=== PATIENT | female | born 1980 | race Caucasian/White ===

== ENCOUNTER 2018-04-24 17:08 | Emergency (ER) | payer MEDICAID, OTHER ==
[2018-04-24] MEDS ORDERED: Sodium Chloride 0.9% 1,000 ML IV ONE (18:28)
[2018-04-24] MEDS ORDERED: Sodium Chloride 0.9% 1,000 ML ONE (19:03)
[2018-04-24 19:05] LABS: BASO % 0.4 % (0.0-2.0); EOS # 0.2 K/uL (0.0-0.7); EOS % 2.2 % (0.0-4.0); HEMOGLOBIN 13.6 g/dL (11.0-16.0); LYMPH % 33.7 % (20.0-40.0); MEAN CELL VOLUME 84.8 fL (81.0-99.0); MEAN CORPUSCULAR HEMOGLOBIN 29.6 pg (27.0-31.0); MEAN CORPUSCULAR HGB CONC 34.9 g/dL (33.0-37.0); MEAN PLATELET VOLUME 10.4 fL (7.2-11.7); MONO # 0.8 K/uL (0.0-0.8); MONO % 8.4 % (0.0-10.0); NEUT % 55.3 % (50.0-75.0); NRBC % 0.1 % (0.0-2.0); RBC 4.6 Mil/uL (3.80-5.20); RED CELL DISTRIBUTION WIDTH 13.9 % (11.5-14.5)
[2018-04-24 19:08] LABS: SQUAMOUS EPITHIAL 2 /hpf (0-5); URINE BILIRUBIN NEGATIVE (NEGATIVE); URINE BLOOD NEGATIVE (NEGATIVE); URINE CLARITY Clear (Clear); URINE COLOR Yellow (YELLOW); URINE GLUCOSE (UA) NORMAL (Normal); URINE LEUKOCYTE ESTERASE NEG Leu/uL (Negative); URINE PROTEIN NEGATIVE (NEGATIVE); URINE UROBILINOGEN NORMAL mg/dL (0.2-1.0)
[2018-04-24 19:09] LABS: HCG,QUALITATIVE URINE NEGATIVE (NEGATIVE)
[2018-04-24 19:17] LABS: ALBUMIN 3.9 g/dL (3.5-5.0); ALT/SGPT 45 U/L (9-52); AST/SGOT 31 U/L (14-36); BLOOD UREA NITROGEN 14 mg/dL (7-17); CALCIUM 9.2 mg/dl (8.6-10.4); GFR NON-AFRICAN AMERICAN > 60; LIPASE 209 U/L (23-300)
--- NOTE | 2018-04-24 19:46 | C.PDOC ---
History Of Present Illness 37 y/o female presents to the ER complaining of colicky lower abdominal pain which has been present for the past few days. Patient states that she is sexually active, she is not sure if she is . Denies having fever, chills, nausea, vomiting vaginal discharge, and vaginal bleeding. Time Seen by Provider: 04/24/18 18:22 Chief Complaint (Nursing): Abdominal Pain History Per: Patient History/Exam Limitations: no limitations Onset/Duration Of Symptoms: Days Current Symptoms Are (Timing): Still Present Severity: Moderate Past Medical History Reviewed: Historical Data, Nursing Documentation, Vital Signs Vital Signs: Last Vital Signs Temp 98.5 F 04/24/18 17:15 Pulse 85 04/24/18 17:15 Resp 20 04/24/18 17:15 BP 119/74 04/24/18 17:15 Pulse Ox 97 04/24/18 17:15 - Medical History PMH: Migraine Other Surgeries: Hx of surgeries Family History: States: No Known Family Hx - Social History Hx Alcohol Use: No Hx Substance Use: No - Immunization History Hx Tetanus Toxoid Vaccination: No Hx Influenza Vaccination: No Hx Pneumococcal Vaccination: No Review Of Systems Except As Marked, All Systems Reviewed And Found Negative. Constitutional: Negative for: Fever, Chills Gastrointestinal: Positive for: Abdominal Pain. Negative for: Nausea, Vomiting Genitourinary: Negative for: Dysuria, Hematuria, Vaginal Discharge, Vaginal Bleeding Physical Exam - Physical Exam Appears: Non-toxic, No Acute Distress, Other (obese female) Skin: Normal Color, Warm, Dry Head: Atraumatic, Normacephalic Eye(s): bilateral: Normal Inspection Nose: Normal Oral Mucosa: Moist Neck: Supple Chest: Symmetrical Cardiovascular: Rhythm Regular Respiratory: Normal Breath Sounds, No Rales, No Rhonchi, No Wheezing Gastrointestinal/Abdominal: Soft, Tenderness (mild suprapubic tenderness), No Guarding, No Rebound, Other (negative Henderson's, negative McBurney's) Neurological/Psych: Oriented x3, Normal Speech ED Course And Treatment - Laboratory Results Result Diagrams: 04/24/18 19:02 04/24/18 19:02 Lab Interpretation: Normal (ua neg,) Urine POC: Negative O2 Sat by Pulse Oximetry: 97 (RA) Pulse Ox Interpretation: Normal Medical Decision Making Medical Decision Making: no no uti chronic constip Disposition Doctor Will See Patient In The: Office Counseled Patient/Family Regarding: Studies Performed, Diagnosis - Disposition Referrals: Mc Wei MD [Medical Doctor] - Disposition: HOME/ ROUTINE Disposition Time: 19:45 Condition: GOOD Additional Instructions: michelle un purgante ahora Re-evalua cardenas molestia del abdomen despues de usar el sandip 2-3 veces Cambios de dieta y ejercisio Sigue con cardenas medico examanes del laboratorio, orina, prueba de embarasso NEGATIVOS Instructions: Constipation, Adult (DC) Forms: [employer] (Irish) Print Language: SLOVAK - Clinical Impression Clinical Impression: Colicky abdominal pain - Scribe Statement The provider has reviewed the documentation as recorded by the Scribe Gregorio Beck Provider Attestation: All medical record entries made by the Scribe were at my direction and perso jocy dictated by me. I have reviewed the chart and agree that the record accurately reflects my personal performance of the history, physical exam, medical decision making, and the department course for this patient. I have also personally directed, reviewed, and agree with the discharge instructions and disposition.
[2018-04-24 20:22] VITALS: BP 106/72; PULSE 68; RESP 18; TEMP 98.6
[2018-04-24 20:44] VITALS: O2SAT 97
--- NOTE | 2018-04-25 07:37 | RAD ---
Abdomen four views HISTORY: Abdominal pain. COMPARISON: None available. FINDINGS: Lung galan are clear. Heart size within normal limits. Fecal retention in the colon. Few mildly distended loops of small bowel in the upper mid abdomen. Calcified phleboliths in the pelvis. Impression: Fecal retention in the colon. Nonspecific mildly distended loops of small bowel in the upper mid abdomen. Clinical correlation.
== END 2018-04-24 20:21 | disposition home or self-care (01) ==
LOC: C.ER 17:08
DX: R10.30 Lower abdominal pain, unspecified (principal); R10.84 Generalized abdominal pain
CPT/HCPCS: 74022; 80053; 81001; 83690; 84703; 85025; 87491; 87591; 96361; 96374; 99285; J1885; J7030

== ENCOUNTER 2018-05-10 11:44 | Emergency (ER) | payer OTHER ==
[2018-05-10 12:06] VITALS: RESP 18
[2018-05-10 12:40] LABS: HCG,QUALITATIVE URINE NEGATIVE (NEGATIVE)
[2018-05-10] MEDS ORDERED: Sodium Chloride 0.9% 1,000 ML IV ONE (12:43)
[2018-05-10 12:55] LABS: SQUAMOUS EPITHIAL 8 /hpf (0-5)
[2018-05-10 12:57] LABS: PH,URINE 7 (5.0-8.0); URINE BILIRUBIN NEGATIVE (NEGATIVE); URINE BLOOD 1+ (NEGATIVE); URINE CLARITY Clear (Clear); URINE COLOR YELLOW (YELLOW); URINE GLUCOSE (UA) NORMAL (Normal); URINE LEUKOCYTE ESTERASE NEGATIVE Leu/uL (Negative); URINE PROTEIN NEGATIVE (NEGATIVE); URINE UROBILINOGEN NORMAL mg/dL (0.2-1.0)
[2018-05-10] MEDS ORDERED: Sodium Chloride 0.9% 1,000 ML ONE (13:10)
--- NOTE | 2018-05-10 14:14 | C.PDOC ---
History Of Present Illness 37 y/o female, w/PMhx of migraines, presents to the ER complaining of headache associated with nausea which has been present for the past 1 week. Patient reports that she took Motrin, however the pain persists. She notes that she did not take any medications today. She has history of MRI's with negative results. Denies having head trauma, neck pain, fever, visual changes, dizziness, syncope, and abdominal pain. Time Seen by Provider: 05/10/18 11:57 Chief Complaint (Nursing): Headache History Per: Patient, Environmental Protection Officer (YOLIS lai) History/Exam Limitations: no limitations Onset/Duration Of Symptoms: Days Current Symptoms Are (Timing): Still Present Past Medical History Reviewed: Historical Data, Nursing Documentation, Vital Signs Vital Signs: Last Vital Signs Temp 99.0 F 05/10/18 12:05 Pulse 88 05/10/18 12:05 Resp 18 05/10/18 12:05 BP 129/84 05/10/18 12:05 Pulse Ox 96 05/10/18 12:05 - Medical History PMH: Migraine Other Surgeries: Hx of surgeries Family History: States: No Known Family Hx - Social History Hx Alcohol Use: No Hx Substance Use: No - Immunization History Hx Tetanus Toxoid Vaccination: No Hx Influenza Vaccination: No Hx Pneumococcal Vaccination: No Review Of Systems Except As Marked, All Systems Reviewed And Found Negative. Constitutional: Negative for: Fever, Chills Eyes: Negative for: Vision Change Gastrointestinal: Positive for: Nausea. Negative for: Vomiting, Abdominal Pain Musculoskeletal: Negative for: Neck Pain Neurological: Positive for: Headache Physical Exam - Physical Exam Appears: Well, Non-toxic, No Acute Distress Skin: Normal Color, Warm, Dry Head: Atraumatic, Normacephalic Eye(s): bilateral: Normal Inspection, PERRL, EOMI Nose: Normal Oral Mucosa: Moist Neck: Normal ROM, Supple Chest: Symmetrical Cardiovascular: Rhythm Regular Respiratory: Normal Breath Sounds, No Rales, No Rhonchi, No Wheezing Extremity: Normal ROM Neurological/Psych: Oriented x3, Normal Speech, Normal Cognition, Normal Cranial Nerves (2-12 grossly intact) ED Course And Treatment O2 Sat by Pulse Oximetry: 96 (RA) Pulse Ox Interpretation: Normal Progress Note: Patient treated with Reglan IV, Toradol IV, and IV fluids. On reassessment, patient is resting comfortably, is tolerating PO, and pain has improved. Patient has no neurologic deficit, photophobia, rash, fever, or nuchal rigidity. Patient was instructed to follow up with physician/clinic in 1-2 days. Disposition - Disposition Referrals: Armando Forman MD [Staff Provider] - Disposition: HOME/ ROUTINE Disposition Time: 14:12 Condition: STABLE Additional Instructions: Vaya a cardenas mdico o la clnica en 2-3 long sin falta, para mas evaluacin. Prentice los medicamentos brandie indicado. Volver a la harmony de emergencia en cualquier momento si los sntomas persisten o empeoran. Prescriptions: Acetaminophen/Butalbital/Caf [Fioricet] 1 tab PO BID PRN #14 tab PRN Reason: Headache Instructions: Headache, Adult (DC) Forms: [employer] (Hebrew), Work Excuse Print Language: MALIAN - Clinical Impression Clinical Impression: Headache - PA / HEALTH PROMOTION OFFICER / Resident Statement MD/DO has reviewed & agrees with the documentation as recorded. - Scribe Statement The provider has reviewed the documentation as recorded by the Scribe Gregorio [facility] Provider Attestation All medical record entries made by the Scribe were at my direction and personally dictated by me. I have reviewed the chart and agree that the record accurately reflects my personal performance of the history, physical exam, medical decision making, and the department course for this patient. I have also personally directed, reviewed, and agree with the discharge instructions and disposition.
[2018-05-10 14:35] VITALS: BP 126/82; PULSE 80; TEMP 98.8
[2018-05-10 17:11] VITALS: O2SAT 96
== END 2018-05-10 14:38 | disposition home or self-care (01) ==
LOC: C.ER 11:44
DX: R51 Headache (principal)
CPT/HCPCS: 81001; 84703; 96361; 96374; 96375; 99285; J1885; J2765; J7030

== ENCOUNTER 2018-11-29 20:48 | Emergency (ER) | payer MEDICAID, OTHER ==
--- NOTE | 2018-11-29 21:32 | C.PDOC ---
History Of Present Illness 37 yr old female w/ hx of migraines p/w suprapubic abdominal pain as well as b/l back pain that feels like her previous periods. No vaginal d/c. She is concerned that she may be but has had negative tests at home. She denies any vaginal d/c and notes one week of the period like pain. No vaginal d/c. No constipation / diarrhea / dark or bloody stool. No urinary complaints. No fall or trauma. She notes mild JIMENEZ, not worst of life or sudden in onset as well as CP, non pleuritic. No shortness of breath or cough. No leg swelling. No FND. LMP: 3 months prior Time Seen by Provider: 11/29/18 21:32 Chief Complaint (Nursing): Abdominal Pain Past Medical History Vital Signs: Last Vital Signs Temp 99.1 F 11/29/18 21:25 Pulse 85 11/29/18 21:25 Resp 20 11/29/18 21:25 BP 128/87 11/29/18 21:25 Pulse Ox 98 11/29/18 21:25 Primary Care Provider: Non [facility] Provider, - Medical History PMH: Migraine Family History: States: Unknown Family Hx - Social History Hx Alcohol Use: Yes Hx Substance Use: No - Immunization History Hx Tetanus Toxoid Vaccination: No Hx Influenza Vaccination: No Hx Pneumococcal Vaccination: No Review Of Systems Constitutional: Negative for: Fever, Chills, Sweats Eyes: Negative for: Pain ENT: Negative for: Ear Pain Cardiovascular: Negative for: Chest Pain (she notes cp is epigastric in area), Palpitations, Orthopnea, Edema Respiratory: Negative for: Cough, Shortness of Breath Gastrointestinal: Positive for: Abdominal Pain. Negative for: Nausea, Vomiting, Diarrhea, Constipation, Melena, Hematochezia, Hematemesis Genitourinary: Negative for: Dysuria, Frequency, Incontinence Musculoskeletal: Negative for: Neck Pain, Shoulder Pain Skin: Negative for: Rash, Lesions Neurological: Negative for: Weakness Physical Exam - Physical Exam Appears: Well, Non-toxic, No Acute Distress Skin: Normal Color, Warm, Dry Head: Atraumatic, Normacephalic Eye(s): bilateral: Normal Inspection, PERRL, EOMI Ear(s): Bilateral: Normal Nose: Normal Oral Mucosa: Moist Tongue: Normal Appearing Lips: Normal Appearing Throat: Normal, No Erythema, No Exudate, No Drooling, No Mass Neck: Normal, Normal ROM, Supple, Other (no meningeal signs) Cardiovascular: Rhythm Regular Respiratory: Normal Breath Sounds Gastrointestinal/Abdominal: Soft, Tenderness (suprapubic), No Mass, No Distention, No Guarding, No Rebound Back: Normal Inspection, No CVA Tenderness, No Vertebral Tenderness Extremity: Normal ROM Neurological/Psych: Oriented x3, Normal Speech, Normal Cognition, Normal Cranial Nerves, No Cerebellar Signs, Normal Motor, Normal Sensation Gait: Steady ED Course And Treatment - Laboratory Results Result Diagrams: 11/29/18 22:10 11/29/18 22:10 O2 Sat by Pulse Oximetry: 98 Medical Decision Making Medical Decision Makin yr old female p/w suprapubic pain and b/l L3 paraspinal pain w/ out midline tenderness or signs of cauda equina. No RLQ pain. Likely menstrual pain given similiarity per pt vs pain given last period in [facility]. No vaginal bleeding. EK, NSR, no stemi 2357 Pt notes headache and CP resolved w/ tylenol given upreg negative mild leukocytosis on labs, pending UA US w/ fibroids pending UA. Pt in NAD 0035 abdomen non-ttp on re-exam urine unremarkable endorsed to pt to follow up w/ obgyn or ob clinic given fibroids pt endorsed undersanding Disposition - Disposition Referrals: [facility] [Outside] [facility] [Outside] [facility] [Outside] [facility] [Outside] [facility] [Outside] [facility] [Outside] Jing Goldman MD [Staff Provider] - Disposition Time: 00:34 Condition: STABLE Additional Instructions: JACE JUAREZ, thank you for letting us take care of you today. Your provider was Jm Kong and you were treated for BACK PAINS. The emergency medical care you received today was directed at your acute symptoms. If you were prescribed any medication, please fill it and take as directed. It may take several days for your symptoms to resolve. Return to the Emergency Department if your symptoms worsen, do not improve, or if you have any other problems. Please contact your doctor or call one of the physicians/clinics you have been referred to that are listed on the Patient Visit Information form that is included in your discharge packet. Bring any paperwork you were given at discharge with you along with any medications you are taking to your follow up visit. Our treatment cannot replace ongoing medical care by a primary care provider outside of the emergency department. Thank you for allowing the [facility] team to be part of your care today. If you had an X-Ray or CT scan: A Radiologist will review the ED reading if any change in treatment is needed we will contact you. If you had a blood, urine, or wound culture: It will take several days for the results, if any change in treatment is needed we will contact you. If you had an STI test: It will take 48 hours for the results. Please call after 1 week if you have not heard back. Instructions: Uterine Fibroids Forms: [employer] (Hebrew), [employer] (German) Print Language: CUBAN - Clinical Impression Clinical Impression: Fibroids
[2018-11-29 21:36] VITALS: TEMP 99.1
[2018-11-29] MEDS ORDERED: Sodium Chloride 0.9% 1,000 ML IV ONE (21:56)
[2018-11-29 22:14] LABS: BASO # 0.1 K/uL (0.0-0.2); BASO % 0.6 % (0.0-2.0); EOS # 0.2 K/uL (0.0-0.7); EOS % 1.6 % (0.0-4.0); HEMOGLOBIN 13.3 g/dL (11.0-16.0); LYMPH % 29.7 % (20.0-40.0); MEAN CELL VOLUME 85.2 fL (81.0-99.0); MEAN CORPUSCULAR HGB CONC 34.1 g/dL (33.0-37.0); MEAN PLATELET VOLUME 10.4 fL (7.2-11.7); MONO # 1.3 K/uL (0.0-0.8); MONO % 9.8 % (0.0-10.0); NEUT # 7.8 K/uL (1.8-7.0); NEUT % 58.3 % (50.0-75.0); NRBC % 0.1 % (0.0-2.0); RBC 4.58 Mil/uL (3.80-5.20); RED CELL DISTRIBUTION WIDTH 13.9 % (11.5-14.5); WHITE BLOOD COUNT 13.5 K/uL (4.8-10.8)
[2018-11-29 22:46] LABS: ALT/SGPT 37 U/L (9-52); AST/SGOT 38 U/L (14-36); BLOOD UREA NITROGEN 14 mg/dL (7-17); CALCIUM 9.3 mg/dl (8.6-10.4); GFR NON-AFRICAN AMERICAN > 60; LIPASE 150 U/L (23-300)
[2018-11-30 00:27] LABS: SQUAMOUS EPITHIAL 6 /hpf (0-5); URINE BACTERIA RARE (<OCC); URINE BILIRUBIN NEGATIVE (NEGATIVE); URINE BLOOD NEGATIVE (NEGATIVE); URINE CLARITY Hazy (Clear); URINE COLOR Yellow (YELLOW); URINE GLUCOSE (UA) NORMAL (Normal); URINE LEUKOCYTE ESTERASE NEG Leu/uL (Negative); URINE PROTEIN NEGATIVE (NEGATIVE); URINE UROBILINOGEN NORMAL mg/dL (0.2-1.0)
[2018-11-30 01:03] VITALS: BP 120/80; PULSE 80; RESP 14; O2SAT 99
--- NOTE | 2018-11-30 12:33 | US ---
Date of service: 11/29/2018 HISTORY: suprapubic pain COMPARISON: None available. TECHNIQUE: Transabdominal and transvaginal pelvic ultrasound was performed. FINDINGS: UTERUS: Measures 11.6 x 6.9 x 0.1 cm. Anteverted and enlarged. There is a 5.1 x 4.2 x 5.5 cm intramural fundal fibroid, 2.2 x 1.9 x 2.2 cm anterior wall intramural fibroid in the midbody of the uterus, 1.5 x 0.8 x 1.3 cm anterior wall intramural fibroid in the lower uterine segment and 1.0 x 0.9 x 1.0 cm intramural posterior wall fibroid in the lower uterine segment. ENDOMETRIUM: Measures 9.0 mm in diameter. Unremarkable. CERVIX: No cervical abnormality identified. RIGHT OVARY: Measures 3.7 x 2.4 x 3.8 cm. No solid mass. Normal flow. There is a 1.5 x 1.0 x 1.2 cm involuting cyst LEFT OVARY: Measures 4.3 x 1.8 x 2.9 cm. No solid mass. Normal flow. FREE FLUID: No significant free fluid noted. OTHER FINDINGS: None.. IMPRESSION: Enlarged fibroid uterus with a dominant 5.1 x 4.2 x 5.5 cm intramural fundal fibroid.
--- NOTE | 2018-11-30 14:33 | CARD ---
APPROVED REPORT Date of service: 11/29/2018 EKG Measurement Heart [id number] <Conclusion> Normal sinus rhythm Normal ECG
== END 2018-11-30 01:03 | disposition home or self-care (01) ==
LOC: C.ER 20:48
DX: D25.9 Leiomyoma of uterus, unspecified (principal)
CPT/HCPCS: 76830; 76856; 80053; 81001; 81025; 83690; 85025; 93005; 99285; J7030